=== PATIENT | female | born 1965 | race African-American/Black ===

== ENCOUNTER → 2016-08-05 | Outpatient (CLI) | payer BC, OTHER ==
[~2016-08-05] VITALS: Ht 170.2 cm; Wt 113.9 kg
[~2016-08-05] MED LIST: AMBIEN CR12.5 MG PO; BYSTOLIC20 MG PO; COQ10-VIT E 201 EACH PO; CORLANOR5 MG PO; FARXIGA10 MG PO; FERROUSUL325 M1 PO; GLUCOPHAGE1000 MG PO; LIPITOR 20 MG T20 M1 PO; NORFLEX100 MG PO; PANTOPRAZOLE SO40 M1 PO; TRAMADOL 50 MG50 MG PO; VICTOZA0.6 MG/0.1 SUBQ; VITAMIN B-1000 MCG/2 PO; VITAMIN D 5050000 I1 PO
--- NOTE | ~2016-08-05 | HPC ---
Formerly [facility] [place] [address] PAIN MANAGEMENT CONSULTATION Name: ZENOBIA REDMOND Room #: REG [facility] Michael.#: [id number] Admission: 08/05/16 Attend Phys: Luis Fernando Chin MD Discharge: Date of : 63 Report #: [id number] THIS REPORT FOR: //name// CC: Dr. Marek Chin DATE OF SERVICE: 08/05/2016 DATE OF REGISTRATION: 08/05/2016. CHIEF COMPLAINT: Severe pain in right shoulder, status post shoulder surgery. The patient is here today for evaluation of persistent pain in the neck, shoulder and radiating into the upper arm. Consideration of complex regional pain syndrome has been given. She is a 51-year-old who had severe problems with her shoulder and underwent a first surgery in early 2015. A second surgery was undertaken on 07/07/2015. Dr. Martinez performed a right shoulder arthroscopy, a posterior and superior labral debridement and a subdeltoid and subacromial adhesion release. She has had persistent ongoing pain since surgery. Dr. Martinez frequently discussed with the patient the importance of movement in therapy in the subsequent months; however, it seems that she has subsequently developed some shoulder restrictions, which I would likely think are capsular adhesions. She has restricted motion. Dr. Martinez has attempted to perform diagnostic injections of the right subacromial bursa with lidocaine alone, this did not provide additional improvement. She also had multiple trigger point injections without help. She was started on Cymbalta by Dr. Meek who performed the injections. She has developed neck pain and there was some consideration that this might be cervical radiculopathy; however, in many ways the physical exam does not seem to correlate. At this time, she reports that she has daily pain of 9/10. Pain is along the right side of her neck and she has an occipital headache 24 hours a day 7 days a week. She has pain in the right deltoid. She has pain that radiates into the scapula and down into the deltoid region. She complains of periodic and intermittent numbness and tingling of the hand along with pain and burning. MEDICATIONS: Bystolic, CoQ10, ferrous sulfate, vitamin B12, vitamin D, pantoprazole, Lipitor, Victoza, Farxiga, metformin, orphenadrine, Ambien and Corlanor 2.5 mg b.i.d. ALLERGIES: She cannot take any steroid injections because they caused her to have unusual joint reactions. She is allergic to MORPHINE, DEMEROL and LISINOPRIL. [address] [address] PAIN MANAGEMENT CONSULTATION Name: ZENOBIA REDMOND Room #: REG [facility] Akhtar#: [id number] Admission: 08/05/16 Attend Phys: Luis Fernando Chin MD Discharge: Date of : 63 Report #: [id number] PAST MEDICAL HISTORY: Remarkable for the shoulder problems which have been persistent and recurring, dating back as far as 2006 when she had her first shoulder issues. She also had problems on the left in 2007 and received stellate ganglion blocks x 2 for presumed complex regional pain syndrome. She has had neck problems. She had C5-C6 diskectomy in 2003, she underwent a spinal cord stimulation in 2006 which failed. This was followed by an anterior cervical diskectomy and fusion in 2007. She has had cardiac issues. She follows with Dr. Samira Park for nonischemic cardiomyopathy. This idiopathic condition is felt to be related to issues that occurred during her pregnancies many years ago. She was preeclamptic. cardiomyopathy is documented. The patient also suffers from diabetes and hypertension. SOCIAL HISTORY: She has not worked since 2010. She denies use of tobacco or alcohol. She is and supportive spouse is with her today. REVIEW OF SYSTEMS: Positive for right-sided cervicogenic headaches, migraine headaches on occasion, right arm weakness, numbness and tingling. PHYSICAL EXAMINATION: GENERAL: She is a pleasant 51-year-old. Pain score is 9/10. VITAL SIGNS: Blood pressure is 143/90, pulse is 86, respirations 16. BMI is 39.3. HEENT: Normal. MUSCULOSKELETAL: Neck range of motion shows limitations in extension, lateral tilt, particularly to the left and rotational movements to the right, which exacerbate her right-sided neck, suprascapular and deltoid pain. Examination of the right shoulder reveals dramatic restrictions in motion. She has only about 40% of normal abduction. She has pain with external rotation and internal rotation limiting both maneuvers. She has localized tenderness posterior as well as superior and anterior along the shoulder joint. Tenderness is also noted along the deltoid and down into the scapular region. Deep tendon reflexes are 1+ to 2+ biceps, triceps and brachioradialis. She has some allodynia located along the suprascapular region and into the deltoid. This is diminished down into the hand, although she complains of some numbness. She has no weakness with noc engineer or biceps function. She does have weakness with deltoid activities. Deep tendon reflexes in lower extremities are trace with no evidence of hyperreflexia. IMPRESSION: 1. Severe right shoulder pain with likely adhesive capsulitis and restricted movement, status post shoulder surgery 1 year. 2. Some light touch allodynia in the upper arm to suggest sympathetically mediated pain. This is mild in comparison to her somatic complaints. Formerly [facility] [address] [facility] [place] [address] PAIN MANAGEMENT CONSULTATION Name: ZENOBIA REDMOND Room #: REG [facility] Giovana#: [id number] Admission: 08/05/16 Attend Phys: Luis Fernando Chin MD Discharge: Date of : 63 Report #: [id number] 3. Diabetes. 4. Idiopathic nonischemic cardiomyopathy. 5. History of ICD placement. 6. History of left foot and ankle injury with multiple surgeries at [facility]. 7. Hypertension. RECOMMENDATIONS: I will be willing to do sympathetic nerve blocks, but I think that unless we can provide relief of her shoulder generator that we will re-trigger ongoing symptoms. She has some significant somatic pain generated through the shoulder joint and her adhesive capsulitis. RECOMMENDATION 1. Tramadol one tablet 2-3 times a day with regular exercise of the shoulder with attempts to improve range of motion. 2. Consider anesthesia, either regional or general for shoulder range of motion to improve, what appears to be restrictive adhesions. 3. Consider sympathetic nerve block only if we can follow with active physical therapy. Risks and benefits of the injections were discussed. 4. Topical neurogenic sympathetic pain cream applied 4 times daily was ordered. 5. Follow up for stellate ganglion block in 1-2 weeks after beginning pain management therapy with anti-inflammatory neurogenic cream and tramadol. By: [id number] Luis Fernando Chin MD /nt
[2016-08-05 12:53] VITALS: BP 143/90
== END | disposition home or self-care (01) ==
LOC: PAIN 06:55
DX: M25.511 Pain in right shoulder (principal); G89.29 Other chronic pain; I10 Essential (primary) hypertension; E11.9 Type 2 diabetes mellitus without complications; I42.9 Cardiomyopathy, unspecified; Z95.0 Presence of cardiac pacemaker; Z98.890 Other specified postprocedural states; Z88.8 Allergy status to other drugs, medicaments and biological substances; Z79.899 Other long term (current) drug therapy

== ENCOUNTER → 2016-08-19 | Outpatient (CLI) | payer BC, OTHER ==
[~2016-08-19] VITALS: Ht 170.2 cm; Wt 114.7 kg
[2016-08-19 14:26] VITALS: BP 141/94
== END | disposition home or self-care (01) ==
LOC: PAIN 06:48
DX: G90.511 Complex regional pain syndrome I of right upper limb (principal)

== ENCOUNTER → 2016-09-19 | Outpatient (CLI) | payer BC, OTHER ==
[~2016-09-19] VITALS: Ht 170.2 cm; Wt 115.5 kg
[~2016-09-19] MED LIST changes: +FLEXERIL PO; +HYDROCODONE-APA1 TA1 PO; +LYRICA 50 MG50 MG PO
--- NOTE | ~2016-09-19 | HPC ---
[facility] [address] [address] PAIN MANAGEMENT CONSULTATION Name: ZENOBIA REDMOND Room #: REG [facility] Michael.#: [id number] Admission: 09/19/16 Attend Phys: Luis Fernando Chin MD Discharge: Date of : 63 Report #: [id number] THIS REPORT FOR: //name// CC: Ifeoma Chin [place] Dr. Jara [place] Dr. Traylor DATE OF SERVICE: 09/19/2016 DATE OF REGISTRATION: 09/19/2016. REASON FOR CONSULTATION: Followup visit for complex regional pain syndrome, right upper extremity. The patient returns to pain clinic today for another stellate ganglion block. I performed an injection for her on 08/19. She reports that she had 24 hours of excellent pain relief suggesting that there is a strong sympathetic component. I have encouraged her to use both passive and active therapy to keep the arm in motion. She is reporting that she is using her arm more. When I entered the room; however, she was sitting in a touch me not position with a heating pad on her arm. She reports that she has daily pain that limits activity and movement of the arm. She scores her pain at a 9/10 today. Pain is described as a constant, burning, aching, sharp, stabbing, cramping sensation. MEDICATIONS: For pain include a high dose of gabapentin, I have suggested a transition to Lyrica. Cyclobenzaprine 10 mg t.i.d., hydrocodone 7.5 mg 4 times daily, Tramadol as needed, Ambien CR, Norflex, Glucophage, Farxiga, Victoza, pantoprazole, Lipitor, vitamin B12, vitamin D, ferrous sulfate, CoQ10, and Bystolic. ALLERGIES: MORPHINE, LISINOPRIL, MEPERIDINE. PHYSICAL EXAMINATION: GENERAL: She is a level 51-year-old pleasant, alert and oriented. She holds her arm in a touch me not position. VITAL SIGNS: Her blood pressure 130/87, heart rate 92, respirations 20. BMI is 31. EXTREMITIES: Examination of the left upper extremity reveals diffusely tender arm that begins in the trapezius through the shoulder, a glove distribution all the way down the arm from the biceps and deltoid region and to the hand. There is some mild allodynia. Strength is diminished in all active tests ____ triceps, biceps and deltoid. She was able to move her arm, I think a bit more today than she has been in the past. Temperature by palpation appears to be normal and symmetrical to the left arm, although [place] [address] PAIN MANAGEMENT CONSULTATION Name: ZENOBIA REDMOND [facility] [id number] Admission: 09/19/16 Attend Phys: Luis Fernando Chin MD Discharge: Date of : 63 Report #: [id number] IMPRESSION: Complex regional pain syndrome, right upper extremity. RECOMMENDATIONS: Stellate ganglion ____ fluoroscopic guidance. The patient was taken to fluoroscopic suite, placed prone, skin was prepped with ChloraPrep on the right neck. I again choose to inject at C7 transverse process, medial aspect due to primary arm symptoms. Skin was anesthetized and a 22-gauge 3-1/2 inch needle was advanced to the medial aspect of the C7 transverse process, contacting just anterior on the vertebral body. I changed the view from oblique to AP and identified good location of the needle tip. After negative aspiration, I injected 1 mL of Omnipaque with excellent spread of dye noted covering C6 transverse process all the way down to C5. I then injected a total of 6 mL of local anesthetic solution, which contained 3 mL of 0.5% bupivacaine and 3 mL of 1% lidocaine. She was taken to recovery room for observation. She tolerated the procedure well, there were no complications. Pain score in the recovery room at the time of discharge was noted to be down by about 20%, but still present. Prescription was written for Lyrica 50 mg t.i.d., she will taper off her gabapentin. Followup visit in one month. She will also continue to follow up with Dr. Martinez. By: [id number] Luis Fernando Chin MD /nt
[2016-09-19 11:17] VITALS: BP 130/87
== END | disposition home or self-care (01) ==
LOC: PAIN 06:53
DX: G90.511 Complex regional pain syndrome I of right upper limb (principal); Z88.8 Allergy status to other drugs, medicaments and biological substances; Z79.899 Other long term (current) drug therapy; Z98.890 Other specified postprocedural states